=== PATIENT | male | born 1955 | race Caucasian/White ===

== ENCOUNTER 2018-03-23 11:12 | Emergency (ER) | payer OTHER ==
[2018-03-23] MEDS ORDERED: KETOROLAC 60 MG/2 ML VIAL IM STA (13:20)
[2018-03-23] MEDS ORDERED: oxyCOD/ACETAMIN 5 MG/325 MG TABLET PO STA (13:20)
--- NOTE | 2018-03-23 13:22 | ED Physician Documentation ---
History of Present Illness - Stated complaint Stated Complaint: R FOOT PX - Chief complaint Chief Complaint: Ext Problem - Additonal information Additional information: hx from pt 62 male insidious onset R foot MTP pain rendess and swelling no trauma no cut no fever took motrin last night s relief up all night with the pain Review of Systems Constitutional: denies: Fever Musculoskeletal: reports: Joint pain PD PAST MEDICAL HISTORY - Past Medical History Cardiovascular: Hypertension, High cholesterol, Angina Respiratory: COPD, Sleep apnea, CPAP use Endocrine/Autoimmune: HyPOthyroidism - Present Medications Home Medications: Ambulatory Orders Medication Instructions Recorded Confirmed Indomethacin [Indocin] 25 mg PO TIDWM PRN #30 capsule 03/23/18 Oxycodone HCl/Acetaminophen 1 each PO QPM PRN #4 tablet 03/23/18 [Percocet 5-325 mg Tablet] - Allergies Allergies/Adverse Reactions: Allergies Allergy/AdvReac Type Severity Reaction Status Date / Time Penicillins Allergy Unknown Verified 03/23/18 11:18 - Social History Does the pt smoke?: No Smoking Status: Never smoker Does the pt drink ETOH?: Yes Does the pt have substance abuse?: No - Immunizations Immunizations are current?: Yes - POLST Patient has POLST: No PD ED PE NORMAL - Vitals Vital signs reviewed: Yes - General General: Alert and oriented X 3 - Cardiac Cardiac: RRR - Respiratory Respiratory: No respiratory distress, Clear bilaterally - Extremities Extremities: Other (R foot redness warmth swelling over great MTP c/w gout, MSV intact, no open wounds or streaking to suggest infection) Results - Vitals Vitals: Vital Signs - 24 hr 03/23/18 11:14 Temperature 36.2 C L Heart Rate 79 Respiratory 15 Rate Blood Pressure 185/115 H O2 Saturation 98 Oxygen O2 Source Room air - Rads (name of study) foot Radiology: See rad report (STS no bony abn) Departure - Departure Disposition: 01 Home, Self Care Clinical Impression: Gout Qualifiers: Gout site: foot Gout etiology: unspecified cause Chronicity: acute Laterality: right Qualified Code(s): M10.9 - Gout, unspecified Condition: Good Instructions: ED Arthritis Gout Prescriptions: Indomethacin [Indocin] 25 mg PO TIDWM PRN #30 capsule PRN Reason: Pain Oxycodone HCl/Acetaminophen [Percocet 5-325 mg Tablet] 1 each PO QPM PRN #4 tablet PRN Reason: Severe Pain at night Comments: Gout is caused by accumulation of painful uric acid crystals in the joint Talk to your PMD about getting your uric acid level checked and if it is elevated possibly starting a medication called allopurinol to decrease the levels Please get your blood pressure rechecked when you are not in so much pain
--- NOTE | 2018-03-23 13:44 | XRAY Report ---
EXAM: RIGHT FOOT RADIOGRAPHY EXAM DATE: 03/23/2018 01:15 PM. CLINICAL HISTORY: Right medial foot pain and swelling at first toe COMPARISON: None. TECHNIQUE: 3 views. FINDINGS: Bones: No fracture. No periarticular erosions. Moderate plantar calcaneal spur. Joints: Nonweightbearing exam. No tibiotalar effusion. Soft Tissues: Mild soft tissue swelling about the foot IMPRESSION: Mild right foot soft tissue swelling. No underlying acute osseous abnormality on nonweigh tbearing radiographs. [facility] Referring Provider Line: [phone] SITE ID: [id number]
--- NOTE | 2018-03-23 13:44 | XRAY Preliminary Report ---
Exam: XR FOOT 3 VIEW RT IMPRESSION: Mild right foot soft tissue swelling. No underlying acute osseous abnormality on nonweigh tbearing radiographs. [facility] SITE ID: [id number]
[2018-03-23 13:54] VITALS: BP 156/113
== END 2018-03-23 13:54 | disposition home or self-care (01) ==
LOC: ED 11:12
DX: M10.9 Gout, unspecified (principal); I10 Essential (primary) hypertension; E78.00 Pure hypercholesterolemia, unspecified; J44.9 Chronic obstructive pulmonary disease, unspecified; G47.30 Sleep apnea, unspecified; E03.9 Hypothyroidism, unspecified; I20.9 Angina pectoris, unspecified
CPT/HCPCS: 73630; 96372; 99283; A9270